=== PATIENT | male | born 1995 | race Caucasian/White ===

== ENCOUNTER 2017-04-17 20:13 | Emergency (ER) | payer OTHER ==
[~2017-04-17] VITALS: Ht 162.5 cm; Wt 59.9 kg
[~2017-04-17 20:13] MED LIST: AMOXICILLIN500 MG PO; AMOXIL400 MG/5 M PO; AMOXIL500 MG PO; BACTRIM DS 8001 TA1 PO; CORDROL20 MG PO; NKHM; PROVENTIL0.09 MG/AC IH; ZANTAC150 MG PO
[2017-04-17 20:31] VITALS: BP 107/76
== END 2017-04-17 22:05 | disposition home or self-care (01) ==
LOC: ED 20:13
DX: B34.9 Viral infection, unspecified (principal)

== ENCOUNTER 2018-06-18 10:21 | Emergency (ER) | payer OTHER ==
[~2018-06-18] VITALS: Wt 63.5 kg
[2018-06-18 10:23] VITALS: BP 120/76
[2018-06-18] MEDS ORDERED: AMOXICILLIN500 M3 PO (11:46)
== END 2018-06-18 11:48 | disposition home or self-care (01) ==
LOC: ED 10:21
DX: J03.90 Acute tonsillitis, unspecified (principal)